=== PATIENT | female | born 1930 | race Caucasian/White ===

== ENCOUNTER 2019-03-16 07:58 | Day surgery (SDC) | payer OTHER, MEDICARE ==
[2019-03-14 11:26] VITALS: BMI 21.7
[2019-03-16] MEDS ORDERED: MIDAZOLAM HCL 2 MG/2 ML SINGLE DOSE VIAL ONE (09:00)
[2019-03-16] MEDS ORDERED: PROPOFOL 20 ML ONE (09:16)
[2019-03-16] MEDS ORDERED: LIDOCAINE HCL 2% (50ML VIAL) INF ONE (09:26)
[2019-03-16 10:04] VITALS: TEMP 97.8
[2019-03-16 10:30] VITALS: BP 145/67; PULSE 65
--- NOTE | 2019-03-17 13:30 | OP ---
DATE OF OPERATION: 03/16/2019 PREOPERATIVE DIAGNOSIS: Left ring trigger finger. POSTOPERATIVE DIAGNOSIS: Left ring trigger finger. OPERATIVE PROCEDURE: Left ring trigger finger release. ANESTHESIA: Local with sedation. COMPLICATIONS: None. ESTIMATED BLOOD LOSS: Minimal. INDICATION FOR PROCEDURE: The patient is an 89-year-old female with the above finding indicated for operative treatment. Risks, benefits, and alternatives were discussed with the patient at length. Proper informed consent was obtained. PROCEDURE: After proper identification of the patient and the correct operative site, patient was brought to the operating room, placed supine on the operating table. All prominences were well padded. Sedation was given by the anesthesiologist. Local anesthesia was given. Left upper extremity was prepped and draped in usual sterile fashion. A well-padded tourniquet was placed as well as a sterile prep. An Esmarch bandage was used to exsanguinate the left upper extremity. Tourniquet was inflated to 250 mmHg. A longitudinal incision was made over the left ring finger A1 marlene. Incision was taken sharply through the skin, with blunt and sharp dissection through the subcutaneous tissues. A1 marlene was identified and divided longitudinally. Patient was asked to flex and extend her finger, and no further triggering was noted. Wound was repaired with 5-0 fast-absorbing plain gut suture. Sterile dressings were applied. Patient was brought to the recovery room in stable condition. She tolerated the procedure well. DEMETRA OBRIEN M.D. [id number]
== END 2019-03-16 10:40 | disposition home or self-care (01) ==
LOC: FASU 07:58
PROVIDERS: ATTEND Orthopaedic Surgery Hand Surgery
PROC: 0LN80ZZ Release Left Hand Tendon, Open Approach (ICD-10-PCS; principal; 2019-03-16 09:26)
DX: M65.342 Trigger finger, left ring finger (principal)